=== PATIENT | female | born 1970 | race African-American/Black ===

== ENCOUNTER 2018-08-12 02:56 | Inpatient (IN) ==
[2018-08-12] MEDS ORDERED: ALUM/MAG/SIMETH/LIDO VISC 1:1 30 ML BOTTLE PO STA (03:19)
[2018-08-12] MEDS ORDERED: SODIUM CHLORIDE 0.9% 500 ML IV STA (03:19)
[2018-08-12] MEDS ORDERED: ONDANSETRON 4 MG/2 ML VIAL IV STA (03:19)
[2018-08-12] MEDS ORDERED: KETOROLAC 30 MG/1 ML VIAL IV STA (03:19)
[2018-08-12] MEDS ORDERED: PANTOPRAZOLE 40 MG VIAL IV STA (03:19)
[2018-08-12] MEDS ORDERED: HYDROmorphone 2 MG/1 ML VIAL IV STA (03:19)
[2018-08-12 03:59] LABS: Basophils % 0.3 % (0.0-0.8); Eosinophils % 0.6 % (0.00-10.9); Hematocrit 53.6 VOL% (35.7-47.0); Hemoglobin 17.8 GM/DL (12.0-16.0); Immature Granulocytes % 0.3 %; Immature Granulocytes Absolute 0.02 #; Lymphocytes # 1.4 10*3/uL (1.4-4.0); Lymphocytes % 19.2 % (21.3-54.2); Mean Corpuscular HGB Conc 33.2 GM/DL (32-36); Mean Corpuscular Hemoglobin 28 PG (27-34); Mean Corpuscular Volume 83.4 FL (87-102); Mean Platelet Volume 10.2 FL (9.6-12.0); Monocytes # 0.4 10*3/uL (0.11-0.8); Monocytes % 4.9 % (1.7-12.7); Neutrophils # 5.4 10*3/uL (1.4-7.4); Neutrophils % 74.7 % (38.7-73.9); Platelet Count 302 T/CUMM (130-400); Red Blood Count 6.43 MC/CUMM (3.8-5.5); Red Cell Distribution Width 14.2 % (9.3-17.3); White Blood Count 7.2 T/CUMM (4-12)
[2018-08-12 04:28] LABS: Albumin 3.8 G/DL (3.4-5.0); Bilirubin,Total 0.5 MG/DL (0.2-1.0); Calcium 10.2 MG/DL (8.5-10.1); Osmolality,Calculated 258.9 MOS/KG (273-304); Potassium 4.3 MMOL/L (3.5-5.1); Total Protein 9.9 G/DL (6.4-8.3)
[2018-08-12 04:29] LABS: Lactic Acid 1.4 MMOL/L (0.4-2.0)
[2018-08-12 05:12] LABS: Apearance,Urine CLEAR (Clear); Bacteria,Urine Occasional /HPF (Few); Bilirubin,Urine Negative (Negative); Blood, Urine Negative (Negative); Glucose,Urine (UA) Negative (Negative); Ketones,Urine Negative (Negative); Mucus,Urine Occasional /LPF (Occasional); Nitrite,Urine Negative (Negative); Protein,Urine 100 MG/DL; RBC,Urine 3 /HPF (0-4); Squamous Epithelial Cell,Urine Occasional /HPF (0-10); Urine Color Yellow (Yellow); Urine Specific Gravity 1.056 (1.001-1.035); Urine Urobilinogen < 2.0 EU/DL (0.2-1.0); WBC,Urine 4 /HPF (0-6)
[2018-08-12] MEDS ORDERED: HYDROmorphone 2 MG/1 ML VIAL IV PRN (05:52)
[2018-08-12] MEDS ORDERED: ONDANSETRON 4 MG/2 ML VIAL IV PRN (05:52)
[2018-08-12] MEDS ORDERED: ACETAMINOPHEN 325 MG TABLET PO PRN (05:52)
[2018-08-12] MEDS: SODIUM CHLORIDE 0.9% 1,000 ML IV SCH ×2 (06:11→14:12)
[2018-08-12] MEDS: amLODIPine 10 MG TABLET PO SCH (16:26)
[2018-08-12] MEDS: CARVEDILOL 6.25 MG TABLET PO SCH ×2 (16:26→20:31)
[2018-08-12] MEDS: PANTOPRAZOLE 40 MG VIAL IV SCH (16:27)
[2018-08-12] MEDS: ENOXAPARIN 40 MG/0.4 ML SYRINGE SUBCUT SCH (20:35)
[2018-08-13] MEDS: SODIUM CHLORIDE 0.9% 1,000 ML IV SCH ×6 (03:00→23:16)
[2018-08-13 07:16] LABS: Basophils % 0.6 % (0.0-0.8); Eosinophils # 0.3 10*3/uL (0.0-0.87); Eosinophils % 5.1 % (0.00-10.9); Hemoglobin 16.4 GM/DL (12.0-16.0); Immature Granulocytes % 0.3 %; Immature Granulocytes Absolute 0.02 #; Lymphocytes # 2.7 10*3/uL (1.4-4.0); Mean Corpuscular HGB Conc 31.5 GM/DL (32-36); Mean Corpuscular Hemoglobin 28 PG (27-34); Mean Corpuscular Volume 87.1 FL (87-102); Mean Platelet Volume 10.2 FL (9.6-12.0); Monocytes # 0.6 10*3/uL (0.11-0.8); Monocytes % 9.8 % (1.7-12.7); Neutrophils # 2.6 10*3/uL (1.4-7.4); Neutrophils % 41.2 % (38.7-73.9); Platelet Count 282 T/CUMM (130-400); Red Blood Count 5.97 MC/CUMM (3.8-5.5); Red Cell Distribution Width 14.4 % (9.3-17.3); White Blood Count 6.2 T/CUMM (4-12)
[2018-08-13 07:39] LABS: Albumin 3.6 G/DL (3.4-5.0); Bilirubin,Total 0.6 MG/DL (0.2-1.0); Calcium 8.7 MG/DL (8.5-10.1); Potassium 3.9 MMOL/L (3.5-5.1)
[2018-08-13 08:41] LABS: Albumin (SPE) 4.5 G/DL (3.2-5.3); Albumin (SPE) Rel % 52.8 %; Alpha 1 (SPE) 0.3 G/DL (0.1-0.4); Alpha 1 (SPE) Rel % 3.7 %; Alpha 2 (SPE) 0.8 G/DL (0.4-1.0); Alpha 2 (SPE) Rel % 9.8 %; Beta (SPE) Rel % 12.2 %; Gamma (SPE) 1.8 G/DL (0.7-1.7); Gamma (SPE) Rel % 21.5 %; Total Protein (Chem) 8.5 G/DL (6.4-8.3)
[2018-08-13] MEDS: CARVEDILOL 6.25 MG TABLET PO SCH ×2 (10:45→21:42)
[2018-08-13] MEDS: amLODIPine 10 MG TABLET PO SCH (10:45)
[2018-08-13] MEDS: PANTOPRAZOLE 40 MG VIAL IV SCH (10:45)
[2018-08-13] MEDS: ENOXAPARIN 40 MG/0.4 ML SYRINGE SUBCUT SCH (21:42)
[2018-08-14] MEDS: SODIUM CHLORIDE 0.9% 1,000 ML IV SCH (04:06)
[2018-08-14 05:52] LABS: Basophils % 0.3 % (0.0-0.8); Eosinophils # 0.3 10*3/uL (0.0-0.87); Eosinophils % 3.2 % (0.00-10.9); Hematocrit 50.6 VOL% (35.7-47.0); Hemoglobin 16.1 GM/DL (12.0-16.0); Immature Granulocytes % 0.2 %; Immature Granulocytes Absolute 0.02 #; Lymphocytes % 22.3 % (21.3-54.2); Mean Corpuscular HGB Conc 31.8 GM/DL (32-36); Mean Corpuscular Hemoglobin 27 PG (27-34); Mean Corpuscular Volume 86.1 FL (87-102); Monocytes # 0.9 10*3/uL (0.11-0.8); Monocytes % 9.8 % (1.7-12.7); Neutrophils # 5.6 10*3/uL (1.4-7.4); Neutrophils % 64.2 % (38.7-73.9); Platelet Count 267 T/CUMM (130-400); Red Blood Count 5.88 MC/CUMM (3.8-5.5); Red Cell Distribution Width 13.8 % (9.3-17.3); White Blood Count 8.8 T/CUMM (4-12)
[2018-08-14 06:13] LABS: Calcium 9.1 MG/DL (8.5-10.1); Osmolality,Calculated 266.1 MOS/KG (273-304)
[2018-08-14] MEDS: amLODIPine 10 MG TABLET PO SCH (09:23)
[2018-08-14] MEDS: CARVEDILOL 6.25 MG TABLET PO SCH ×2 (09:23→20:40)
[2018-08-14] MEDS: PANTOPRAZOLE 40 MG VIAL IV SCH (09:23)
[2018-08-14 11:06] LABS: Collection Time,Urine 24 HOURS; Total Protein 24 Hr Ur Result 354 MG/24HR (0-149.1); Total Volume,Urine 2950 ML (400-2000)
[2018-08-14] MEDS: DEXT 5% NACL 0.45% KCL 40 MEQ 40 MEQ/1,000 ML BAG IV SCH ×2 (14:50→23:45)
[2018-08-14] MEDS: ENOXAPARIN 40 MG/0.4 ML SYRINGE SUBCUT SCH (20:40)
[2018-08-15] MEDS: DEXT 5% NACL 0.45% KCL 40 MEQ 40 MEQ/1,000 ML BAG IV SCH (07:14)
[2018-08-15] MEDS: PANTOPRAZOLE 40 MG VIAL IV SCH (09:13)
[2018-08-15] MEDS: CARVEDILOL 6.25 MG TABLET PO SCH (09:43)
[2018-08-15] MEDS: amLODIPine 10 MG TABLET PO SCH (09:43)
[2018-08-15 11:25] VITALS: BP 134/68
[2018-08-16 11:54] LABS: 24 Hr Protein (Bench) 354 MG/24HR (0-149.1)
== END 2018-08-15 12:50 | disposition home or self-care (01) | DRG 389 ==
LOC: N.ED 02:56 → N.EDINP 05:17 → N.3E 05:30
PROVIDERS: ADMIT Surgery; ATTEND Surgery

== ENCOUNTER 2020-08-29 06:15 | Inpatient (IN) ==
[2020-08-29] MEDS ORDERED: ONDANSETRON 4 MG/2 ML VIAL IV STA (06:36)
[2020-08-29] MEDS ORDERED: SODIUM CHLORIDE 0.9% 1,000 ML IV STA (06:36)
[2020-08-29] MEDS ORDERED: fentaNYL 100 MCG/2 ML VIAL IV STA (06:37)
[2020-08-29 06:59] LABS: Basophils # 0.1 10*3/uL (0.0-0.2); Basophils % 0.5 % (0.0-0.8); Eosinophils # 0.1 10*3/uL (0.0-0.87); Eosinophils % 0.7 % (0.00-10.9); Hematocrit 54.1 VOL% (35.7-47.0); Hemoglobin 18.3 GM/DL (12.0-16.0); Immature Granulocytes % 0.3 %; Immature Granulocytes Absolute 0.03 #; Lymphocytes # 1.7 10*3/uL (1.4-4.0); Lymphocytes % 17.7 % (21.3-54.2); Mean Corpuscular HGB Conc 33.8 GM/DL (32-36); Mean Corpuscular Volume 80.9 FL (87-102); Mean Platelet Volume 9.9 FL (9.6-12.0); Monocytes % 4.6 % (1.7-12.7); Neutrophils % 76.2 % (38.7-73.9); Platelet Count 297 T/CUMM (130-400); Red Blood Count 6.69 MC/CUMM (3.8-5.5); Red Cell Distribution Width 15.1 % (9.3-17.3); White Blood Count 9.6 T/CUMM (4-12)
[2020-08-29 07:18] LABS: Albumin 3.8 G/DL (3.4-5.0); Bilirubin,Total 0.5 MG/DL (0.2-1.0); Calcium 9.9 MG/DL (8.5-10.1); Osmolality,Calculated 271.2 MOS/KG (273-304)
[2020-08-29] MEDS ORDERED: ACETAMINOPHEN 325 MG TABLET PO PRN (09:39)
[2020-08-29] MEDS ORDERED: ALBUTEROL/IPRATROPIUM 3 ML NEB RESP TX PRN (09:39)
[2020-08-29] MEDS ORDERED: HYDROmorphone 2 MG/1 ML VIAL IV PRN (09:39)
[2020-08-29] MEDS ORDERED: GLUCAGON 1 MG VIAL IM PRN (09:43)
[2020-08-29] MEDS ORDERED: DEXTROSE 50% 25 GM/50 ML VIAL IV PRN (09:43)
[2020-08-29] MEDS: LACTATED RINGERS 1,000 ML IV SCH ×3 (11:07→21:02)
[2020-08-29 12:32] LABS: Bilirubin,Urine Negative (Negative); Blood, Urine Negative (Negative); Glucose,Urine (UA) Negative (Negative); Ketones,Urine 5 mg/dL (Negative); Mucus,Urine Occasional /LPF (Occasional); Nitrite,Urine Negative (Negative); Protein,Urine 30 MG/DL; RBC,Urine 1 /HPF (0-4); Squamous Epithelial Cell,Urine Occasional /HPF (0-10); Urine Appearance CLEAR (Clear); Urine Color Yellow (Yellow); Urine Specific Gravity 1.056 (1.001-1.035); Urine Urobilinogen < 2.0 EU/DL (0.2-1.0); WBC,Urine <1 /HPF (0-6)
[2020-08-29] MEDS: INSULIN LISPRO 100 UNIT/ML SUBCUT SCH ×2 (12:55→16:26)
[2020-08-29] MEDS: ONDANSETRON 4 MG/2 ML VIAL IV PRN ×2 (14:15→19:48)
[2020-08-29] MEDS: KETOROLAC 15 MG/1 ML VIAL IV PRN ×2 (15:35→20:56)
[2020-08-30] MEDS: KETOROLAC 15 MG/1 ML VIAL IV PRN (03:10)
[2020-08-30] MEDS: ENOXAPARIN 40 MG/0.4 ML SYRINGE SUBCUT SCH (05:01)
[2020-08-30] MEDS: LACTATED RINGERS 1,000 ML IV SCH ×2 (05:01→09:08)
[2020-08-30 05:44] LABS: Basophils % 0.4 % (0.0-0.8); Eosinophils # 0.1 10*3/uL (0.0-0.87); Eosinophils % 1.5 % (0.00-10.9); Hematocrit 55.1 VOL% (35.7-47.0); Hemoglobin 17.9 GM/DL (12.0-16.0); Immature Granulocytes % 0.2 %; Immature Granulocytes Absolute 0.01 #; Lymphocytes # 1.8 10*3/uL (1.4-4.0); Mean Corpuscular HGB Conc 32.5 GM/DL (32-36); Mean Platelet Volume 10.1 FL (9.6-12.0); Monocytes % 10.4 % (1.7-12.7); Neutrophils % 48.5 % (38.7-73.9); Platelet Count 270 T/CUMM (130-400); Red Blood Count 6.64 MC/CUMM (3.8-5.5); White Blood Count 4.7 T/CUMM (4-12)
[2020-08-30 06:11] LABS: Lymphocytes 40 % (20-55); Platelet Estimate Adequate; Segmented Neutrophils 50 % (50-85); Total Cells Counted 100
[2020-08-30 06:36] LABS: Calcium 9.1 MG/DL (8.5-10.1); Osmolality,Calculated 263.5 MOS/KG (273-304)
[2020-08-30] MEDS: PANTOPRAZOLE 40 MG VIAL IV SCH (08:20)
[2020-08-30] MEDS: INSULIN LISPRO 100 UNIT/ML SUBCUT SCH ×3 (09:08→16:29)
[2020-08-30] MEDS: SODIUM CHLORIDE 0.9% 1,000 ML IV SCH ×2 (10:01→21:58)
[2020-08-30] MEDS: carvediloL 6.25 MG TABLET PO SCH (21:55)
[2020-08-31] MEDS: ENOXAPARIN 40 MG/0.4 ML SYRINGE SUBCUT SCH ×2 (05:25→05:27)
[2020-08-31] MEDS: INSULIN LISPRO 100 UNIT/ML SUBCUT SCH ×2 (07:50→11:38)
[2020-08-31] MEDS: SODIUM CHLORIDE 0.9% 1,000 ML IV SCH (08:25)
[2020-08-31] MEDS: PANTOPRAZOLE 40 MG VIAL IV SCH (08:27)
[2020-08-31] MEDS ORDERED: amLODIPine 10 MG TABLET PO SCH (09:00)
[2020-08-31 12:52] VITALS: BP 146/78
[2020-08-31] MEDS: carvediloL 6.25 MG TABLET PO SCH (13:29)
== END 2020-08-31 16:15 | disposition home or self-care (01) | DRG 389 ==
LOC: EDUNIT# → EDBD → N.ED 06:15 → N.EDINP 09:39 → N.4E 10:32
PROVIDERS: ADMIT Surgery; ATTEND Surgery